=== PATIENT | male | born 2000 | race Caucasian/White ===

== ENCOUNTER 2022-05-19 13:15 | Emergency (ER) | payer OTHER ==
[2022-05-19 13:24] VITALS: BP 126/59
[2022-05-19] MEDS ORDERED: METOCLOPRAMIDE 10 MG TABLET PO ONE (14:36)
[2022-05-19] MEDS ORDERED: KETOROLAC 60 MG/2 ML VIAL IM STA (14:36)
--- NOTE | 2022-05-19 14:37 | ED Physician Documentation ---
History of Present Illness - Stated complaint Stated Complaint: HEAD PX/CHILLS/TIRED - Chief complaint Chief Complaint: General - History obtained from History obtained from: Patient - Additonal information Additional information: This is a healthy 21-year-old male with no significant past medical history who presents from the [facility] due to headache, body aches, chills and fatigue over the course of the last 24 hours. Patient was seen at the [facility] and had a negative COVID and flu test thus he was sent to the ER for further evaluation. Patient states he has a pretty significant headache which is unusual for him, he feels some pressure behind his eyes, feels very fatigued and has generalized body aches. He has mild nausea but no vomiting, no abdominal pain, no diarrhea today but did have some yesterday, no urinary symptoms, no rash. He has no neck rigidity or stiffness. He denies any known sick contacts. He took some ibuprofen yesterday but no medication today for his symptoms. He states he did not feel like he needed to come to the ER but was told by the [facility] provider to come here for further evaluation. Patient stating he just felt like he needed some [id number] medication and some rest for a few days. Review of Systems Ten Systems: 10 systems reviewed and negative (Except as noted in HPI) PD PAST MEDICAL HISTORY - Past Medical History Past Medical History: No Cardiovascular: None Respiratory: None Neuro: None Endocrine/Autoimmune: None GI: None : None HEENT: None Psych: None Musculoskeletal: None Derm: None - Past Surgical History Past Surgical History: Yes - Present Medications Home Medications: Ambulatory Orders Medication Instructions Recorded Confirmed No Known Home Medications 05/19/22 05/19/22 - Allergies Allergies/Adverse Reactions: Allergies Allergy/AdvReac Type Severity Reaction Status Date / Time No Known Drug Allergies Allergy Verified 05/19/22 13:20 - Social History Does the pt smoke?: No Smoking Status: Never smoker Does the pt drink ETOH?: No Does the pt have substance abuse?: No - Immunizations Immunizations are current?: Yes PD ED PE NORMAL - Vitals Vital signs reviewed: Yes - General General: Alert and oriented X 3, No acute distress, Well developed/nourished - HEENT HEENT: Atraumatic, Ears normal, Moist mucous membranes, Pharynx benign - Neck Neck: Supple, no meningeal sign, No bony TTP, No JVD, Other (No meningeal signs) - Cardiac Cardiac: RRR, No murmur - Respiratory Respiratory: No respiratory distress, Clear bilaterally - Abdomen Abdomen: Normal bowel sounds, Soft - Derm Derm: Normal color, Warm and dry - Extremities Extremities: No deformity - Neuro Neuro: Alert and oriented X 3 Eye Opening: Spontaneous Motor: Obeys Commands Verbal: Oriented GCS Score: 15 - Psych Psych: Normal mood, Normal affect Results - Vitals Vitals: Vital Signs - 24 hr 05/19/22 13:20 Temperature 37 C Heart Rate 85 Respiratory 16 Rate Blood Pressure 126/59 L O2 Saturation 98 Oxygen O2 Source Room air PD MEDICAL DECISION MAKING - ED course Complexity details: re-evaluated patient, considered differential, d/w patient ED course: This is a generally healthy 21-year-old male who presented with headache and fatigue as noted in HPI. He is well-appearing on physical exam, vitals here are stable. [place] I did offer to really do these or do an entire respiratory viral panel however patient declined. His symptoms are however suggestive of viral illness whether it be COVID, flu or another viral syndrome. I do not see any meningeal signs and exam and have low suspicion for meningitis. Patient has no history of headaches but this is not a thunderclap headache or the worst headache of his life and is accompanied by other viral symptoms more suggestive of viral illness. DM patient has not taken any medication today therefore we will give him an IM shot of Toradol as well as a dose of metoclopramide with improvement in his symptoms. He was advised to continue ibuprofen and Tylenol at regular intervals over neck several days, get plenty of rest and stay well-hydrated. He was given a note for 2 to 3 days off work as needed and he may return when symptoms are improving as long as he is afebrile. If his symptoms worsen, he is advised to follow back up with the [facility] doctor or return to the ER. Departure - Departure Disposition: 01 Home, Self Care Condition: Good Comments: You presented with headache, Chills, and fatigue over the course of the last day or so. Your physical exam here is reassuring. Your symptoms are suggestive of a viral illness and even though your COVID and flu Were negative, these remain a possibility. There are also a number of other viruses that can cause very similar symptoms. Treatment for these is largely supportive, you will need to get plenty of rest over the next several days, and you should take ibuprofen and Tylenol for pain. The headache and generalized body aches may return as the medication wears off so you can continue it throughout the day every 4-6 hours. Please get plenty of rest and stay well-hydrated. If you have new or worsening symptoms, please follow-up with your primary doctor or return to the ER. Forms: Activity restrictions
== END 2022-05-19 15:06 | disposition home or self-care (01) ==
LOC: ED 13:15
DX: R51.9 Headache, unspecified (principal); M79.10 Myalgia, unspecified site; R53.83 Other fatigue; R68.83 Chills (without fever)
CPT/HCPCS: 96372; 99281; 99283; A9270

== ENCOUNTER 2022-08-11 08:00 | Outpatient (CLI) | payer OTHER | END 2022-08-11 08:15 | disposition home or self-care (01) | LOC: LAB.N 08:00 | PROVIDERS: ATTEND Physician Assistant | DX: R07.0 Pain in throat (principal) | CPT/HCPCS: 87070 ==